=== PATIENT | male | born 1995 | race Hispanic/Latino ===

== ENCOUNTER 2021-11-29 10:02 | Emergency (ER) | payer OTHER ==
[~2021-11-29] VITALS: Ht 162.6 cm; Wt 54.0 kg
[2021-11-29 10:11] VITALS: BP 113/67
[2021-11-29] MEDS ORDERED: BENADRYL25 M1 PO (10:29)
[2021-11-29] MEDS ORDERED: MEDDOSEPAK PO (10:29)
[2021-11-29 10:32] VITALS: BP 104/62
[2021-11-29 10:33] VITALS: BP 104/62
== END 2021-11-29 10:36 | disposition home or self-care (01) | DRG 607 ==
LOC: ED 10:02
DX: L25.9 Unspecified contact dermatitis, unspecified cause (principal)

== ENCOUNTER 2021-12-01 09:07 | Emergency (ER) | payer OTHER ==
[~2021-12-01] VITALS: Ht 162.6 cm; Wt 74.0 kg
[~2021-12-01 09:07] MED LIST: BENADRYL25 M1 PO; MEDDOSEPAK PO
[2021-12-01 09:29] VITALS: BP 123/74
[2021-12-01 10:00] VITALS: BP 101/56
[2021-12-01] MEDS ORDERED: TRIAMCINOLON0.11 EX (10:04)
== END 2021-12-01 10:15 | disposition home or self-care (01) | DRG 607 ==
LOC: ED 09:07
DX: L25.9 Unspecified contact dermatitis, unspecified cause (principal)